=== PATIENT | male | born 1965 | race Caucasian/White ===

== ENCOUNTER → 2018-07-01 | Outpatient (CLI) | payer OTHER ==
[~2018-07-01] MED LIST: AMOXICILLIN500 MG PO; ATIVAN0.5 MG PO; CELEXA40 MG PO; CEPHALEXIN500 M1 PO; EC NAPROSYN500 MG PO; FLEXERIL10 MG PO; MEDROL DOSEPAK4 MG PO; MOTRIN800 MG PO; NEURONTIN300 MG PO; NO DAILY MEDS; PREDNICOT20 MG PO; VICO10300 PO; WELLBUTRIN XL150 MG PO; ZITHROMAX Z PA250 MG PO
== END | disposition home or self-care (01) ==
LOC: RAD 11:11
DX: J43.9 Emphysema, unspecified (principal)

== ENCOUNTER 2019-01-13 14:31 | Inpatient (IN) | payer SELFPAY ==
[2019-01-13] VITALS (7 sets, daily range): BP systolic 121–171; BP diastolic 80–103
[~2019-01-13] VITALS: Ht 175.3 cm; Wt 83.1 kg
--- NOTE | ~2019-01-13 | EKG ---
[place], [place] ELECTROCARDIOGRAM REPORT NAME: GAEL GAUTHIER UNIT #: [id number] ROOM: [facility] DOCTOR: HIMANSHU DRAFT REPORT BIRTHDATE: [birth year] [facility] Test Date: 2019-01-13 Test Time: 17:31:36 Pat Name: GAEL GAUTHIER Department: Room: [facility] Gender: M Brass Chaser: : 1965 Requested By: LETA GARCIA Order Number: [id number] Reading MD: Roberto Bob MD Measurements Intervals [place] Rate: 56 P: 79 MT: 131 QRS: 82 QRSD: 108 T: 72 QT: 431 QTc: 416 Interpretive Statements Sinus rhythm RSR' in V1 or V2, right VCD or RVH Nonspecific T abnormalities, lateral leads Electronically Signed On 01-14-2019 7:53:21 PDT by Roberto Bob MD CM:EKGRPT:ELECTROCARDIOGRAM REPORT [id number] LEAT DOWNS DRAFT REPORT LETA GARCIA M.D.
--- NOTE | ~2019-01-13 | CON ---
[place], [place] REPORT OF CONSULTATION [id number] UNIT #: [id number] ROOM: [facility] DOCTOR: DG DENIS MD BIRTHDATE: [birth year] DOS: 01/14/2019 REASON FOR CONSULTATION: Chest pain, elevated cardiac enzymes. HISTORY OF PRESENT ILLNESS: The patient is a 53-year-old gentleman with no prior cardiovascular history presented to the Emergency Room with left-sided chest pain which radiated towards his jaw. He described the pain as pressure-like sensation. His pain started yesterday morning. This is a resting chest pain; then subsequently pain radiated to the left arm. There is nothing that can make his pain worse or better. He denies any associated nausea, vomiting, or diaphoresis. No fever or chills. No nausea or vomiting. Presented to the Emergency Room and was admitted to the hospital and Cardiology was called for further recommendations. In the Emergency Room, his initial troponins are negative. EKG showed nondiagnostic inferior ST elevation with lateral ST-T changes. The patient was chest pain free in the Emergency Room and his initial troponin was negative; hence, he was admitted to the hospital. He received aspirin and Lovenox in the Emergency Room. He denies any further chest pain. He denies any fever and chills. No nausea, vomiting, or diarrhea. No bladder or bowel symptoms. No PND, no orthopnea. The patient does smoke, last time he smoked was yesterday. Other than this, the patient denies any prior history of chest pain. No neurologic symptoms. No bladder or bowel symptoms. No musculoskeletal symptoms. REVIEW OF SYSTEMS: Review of 10 systems are negative except as mentioned above. PAST MEDICAL HISTORY: 1. Nonsignificant except for some emphysema and COPD. 2. Anxiety and depression. 3. Chronic back pain. ALLERGIES: No known drug allergies. PAST SURGICAL HISTORY: No significant surgical history. FAMILY HISTORY: Noncontributory. SOCIAL HISTORY: The patient does smoke about one and half pack a day, does not use illicit drugs, does not drink alcohol. HOME MEDICATIONS: The patient does not take any medications on a regular basis. PHYSICAL EXAMINATION: VITAL SIGNS: Blood pressure 132/70, pulse 87, respirations 14, weight 83.2 kilos. GENERAL: Alert, comfortable, in no acute distress. HEENT: Pupils are round and equal. No jaundice. NECK: Supple, no distended neck veins, no carotid bruit. CHEST: Symmetrical, nontender. LUNGS: Clear to auscultation. [place], [place] REPORT OF CONSULTATION NAME: GAEL GAUTHIER UNIT #: [id number] ROOM: [facility] DOCTOR: CIRA GIL,DG BIRTHDATE: [birth year] HEART: Regular rate and rhythm, no S3, no palpable thrills. ABDOMEN: Benign, nontender. Bowel sounds normal. EXTREMITIES: Showed no edema. Distal pulses palpable. SKIN: Warm and dry. No cyanosis, no clubbing. RECTAL: Deferred. GENITOURINARY: Deferred. NEUROLOGIC: The patient is alert with no focal neurologic deficit. REVIEW OF THE DIAGNOSTIC TESTS: Initial EKG in the Emergency Room showed some nondiagnostic inferior ST elevation and some lateral ST-T changes. A repeat EKG showed normal sinus rhythm with no ischemic changes. His pertinent labs include white cell count today 19.3 thousand, hemoglobin 15.2, and platelet 270,000. Chemistry unremarkable. Creatinine 0.8. The troponins initially 0.02, subsequently 1.19, 6.87, 12.7. IMPRESSION: 1. Non-ST elevation myocardial infarction. 2. Tobacco smoking. 3. Morbid obesity. 4. 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 RECOMMENDATIONS: 1. The patient currently denies significant pain. Blood pressure and heart rate are stable. Continue aspirin, beta jose eduardo, statin, and Lovenox. He was scheduled to have a cardiac catheterization today at [facility]. Risk and benefits of cardiac catheterization as well as a possible angioplasty and stent was discussed with the patient and his family members and all questions were answered. 2. The patient agreed to proceed to cardiac catheterization, possible angioplasty stent or bypass surgery if needed today at [place], [place]. 3. The patient to follow up with [facility] at the [facility] after his discharge. 4. The patient counseled to quit smoking. DG DENIS MD CM:CONSTR:REPORT OF CONSULTATION [id number] 01/14/19 1037 interface
--- NOTE | ~2019-01-13 | EKG ---
[place], [place] ELECTROCARDIOGRAM REPORT NAME: GAEL GAUTHIER UNIT #: [id number] ROOM: [facility] DOCTOR: HIMANSHU DRAFT REPORT BIRTHDATE: [birth year] [facility] Test Date: 2019-01-13 Test Time: 20:18:10 Pat Name: GAEL GAUTHIER Department: Room: [facility] Gender: M Cocktail Waitress: Roxana Wyatt : 1965 Requested By: LETA GARCIA Order Number: [id number] Reading MD: Roberto Bob MD Measurements Intervals [place] Rate: 98 P: 76 AR: 145 QRS: 79 QRSD: 103 T: 37 QT: 369 QTc: 472 Interpretive Statements Sinus rhythm RSR' in V1 or V2, right VCD or RVH Electronically Signed On 01-14-2019 7:53:33 PDT by Roberto Bob MD CM:EKGRPT:ELECTROCARDIOGRAM REPORT [id number] LETA DOWNS DRAFT REPORT LETA GARCIA M.D.
--- NOTE | ~2019-01-13 | EKG ---
[place], [place] ELECTROCARDIOGRAM REPORT NAME: GAEL GAUTHIER UNIT #: [id number] ROOM: [facility] DOCTOR: HIMANSHU DRAFT REPORT BIRTHDATE: [birth year] [facility] Test Date: 2019-01-14 Test Time: 01:07:55 Pat Name: GAEL GAUTHIER Department: Room: [facility] Gender: M It Generalist: Roxana Wyatt : 1965 Requested By: JENIFER LUEVANO Order Number: [id number] Reading MD: Emerson Dougherty Measurements Intervals [place] Rate: 88 P: 79 [place]: 136 QRS: 79 QRSD: 101 T: 48 QT: 379 QTc: 459 Interpretive Statements Sinus rhythm RSR' in V1 or V2, right VCD or RVH Electronically Signed On 01-15-2019 4:33:01 PDT by Emerson Dougherty CM:EKGRPT:ELECTROCARDIOGRAM REPORT [id number] JENIFER CANNON DRAFT REPORT JENIFER LUEVANO DO
--- NOTE | ~2019-01-13 | EKG ---
[place], [place] ELECTROCARDIOGRAM REPORT NAME: GAEL GAUTHIER UNIT #: [id number] ROOM: [facility] DOCTOR: HIMANSHU DRAFT REPORT BIRTHDATE: [birth year] [facility] Test Date: 2019-01-13 Test Time: 14:35:24 Pat Name: GAEL GAUTHIER Department: Room: [facility] Gender: M Emergency Response Coordinator: : 1965 Requested By: LETA GARCIA Order Number: [id number] Reading MD: Roberto Bob MD Measurements Intervals [place] Rate: 80 P: 74 [place]: 123 QRS: 88 QRSD: 100 T: 97 QT: 373 QTc: 431 Interpretive Statements Sinus rhythm Probable inferior infarct, recent Abnrm T, consider ischemia, anterolateral lds ST depression V1-V3, suggest recording posterior leads Electronically Signed On 01-14-2019 7:53:10 PDT by Roberto Bob MD CM:EKGRPT:ELECTROCARDIOGRAM REPORT [id number] LETA DOWNS DRAFT REPORT LETA GARCIA M.D.
[2019-01-13 14:50] LABS: BASO # 0.1 10*3/uL (0.0-0.1); BASO % 0.5 % (0.0-1.0); EOS # 0.2 10*3/uL (0.0-0.4); EOS % 1.3 % (1.0-4.0); HEMATOCRIT 48.8 % (42.0-52.0); HEMOGLOBIN 16.4 g/dl (14.0-18.0); LYMPH # 4.7 10*3/uL (1.3-4.4); LYMPH % 35.2 % (27.0-41.0); MEAN CELL VOLUME 86.5 fl (80.0-94.0); MEAN CORPUSCULAR HGB 29.1 pg (27.0-31.0); MEAN CORPUSCULAR HGB CONC 33.6 g/dl (33.0-37.0); MEAN PLATELET VOLUME 9.6 fl (9.6-12.3); MONO # 0.9 10*3/uL (0.1-1.0); MONO % 7.1 % (3.0-9.0); NEUT # 7.3 10*3/uL (2.3-7.9); NEUT % 55.3 % (47.0-73.0); PLATELET COUNT AUTOMATED 266 10*3/uL (130-400); RED BLOOD COUNT 5.64 10*6/uL (4.50-5.90); RED CELL DISTRI WIDTH 12.9 % (0-14.5); WHITE BLOOD COUNT 13.2 10*3/uL (4.8-10.8)
[2019-01-13 15:01] LABS: ACT PARTIAL THROMBO TIME 24.5 SECONDS (20.0-32.1); INTERNATIONAL NORM RATIO 0.9 (2.0-3.5)
[2019-01-13 15:06] LABS: ALBUMIN 4.2 gm/dl (3.1-4.5); ALKALINE PHOSPHATASE 87 U/L (45-117); BUN 17 mg/dl (7-24); CHLORIDE 102 mmol/L (98-107); POTASSIUM 3.5 mmol/L (3.5-5.1); SGOT/AST 16 IU/L (3-35); SGPT/ALT 30 U/L (12-78); SODIUM 137 mmol/L (136-145); TOTAL PROTEIN 7.7 gm/dL (6.4-8.2); TROPONIN I 0.022 ng/ml (<0.045)
--- NOTE | 2019-01-13 15:15 | NUR ---
PT GIVEN NTG PER PROTOCOL. PRIOR TO 3RD NTG PT RATED PAIN "2" ON SCALE. BP BETTER 121/82--DENNIS ARANDA RN
--- NOTE | 2019-01-13 18:03 | NUR ---
AT 1530 PT'S BP DROPPED TO 81/47 AND PT FELT LIGHTHEADED.IV FLUID BOLUS IMMEDIATELY STARTED AND PLACE IN [place] AND WITHIN 15 MIN,PT BP WAS UP TO 123/80 AND HE WAS FEELING BETTER.PARI MCKNIGHT AWARE.PT THEN ADMITTED.---DENNIS ARANDA RN
--- NOTE | 2019-01-13 18:45 | NUR ---
DR ROTHMAN NOTIFIED OF INCREASED TROPONIN LEVEL. NEW ORDER TO HOLD STRESS TEST UNTIL PATIENT IS SEEN BY CARDIOLOGY. DR ALBERTO NOTIFIED.
--- NOTE | 2019-01-13 20:12 | NUR ---
PATIENT RESTING IN BED WITH VISITOR AT BEDSIDE. DENIES CHEST PAIN AT THIS TIME. NO NEEDS MADE. BED IN LOWEST POSITION, CALL LIGHT IN REACH
--- NOTE | 2019-01-13 21:00 | NUR ---
DR LUEVANO AWARE OF 8 BEAT RUN OF VTA. STATES TO CALL DR ROTHMAN
--- NOTE | 2019-01-13 21:04 | NUR ---
DR ADORNO ANSWERING SERVICE AWARE OF NEEDING A CALL BACK.
--- NOTE | 2019-01-13 21:17 | NUR ---
ORDERS TAKEN FROM DR ROTHMAN AT THIS TIME
[2019-01-14] VITALS: BP 126/83
--- NOTE | 2019-01-14 01:02 | NUR ---
DR LUEVANO AWARE OF TROPONIN. STATES TO ORDER A STAT EKG BEFORE CALLING DR ROTHMAN. PATIENT RESTING IN BED. STATES HE IS HAVING CHEST PRESSURE RATED 3/10 ON A 0/10 PAIN SCALE, BUT STATES IT IS NOT BAD IT WAS.
--- NOTE | 2019-01-14 01:14 | NUR ---
DR LUEVANO AWARE OF TROPONINS ORDERS Q6 INSTEAD OF Q3.
--- NOTE | 2019-01-14 01:24 | NUR ---
DR LUEVANO ON THE FLOOR AND SPEAKING WITH DR ROTHMAN. PATIENT TO BE TRANSFERRED FOR HEART CATH IN THE MORNING. DR ROTHMAN TO SET UP TRANSFER
--- NOTE | 2019-01-14 02:01 | NUR ---
PATIENT HAD ANOTHER RUN OF VTACH. DR LUEVANO STATES TO TRANSFER HIM TO THE ICU. DR ALBERTO MADE AWARE
[2019-01-14 02:10] VITALS: BP 133/92
--- NOTE | 2019-01-14 02:10 | NUR ---
PATIENT TRANSFERRED TO [facility] WITH [facility] INTACT. REPORT GIVEN TO VENKAT WOODS. ALL QUESTIONS ANSWERED.
--- NOTE | 2019-01-14 02:23 | NUR ---
PT. RECEIVED FROM AT 0210. DENIES CHEST PAIN AT PRESENT. 02 2L NC APPLIED. VS 97.6-93-18M 133/92, PULSE OX 94% ON 2L NC. KIARA BARFIELD RN
[2019-01-14 06:40] LABS: BASO % 0.1 % (0.0-1.0); HEMATOCRIT 45.7 % (42.0-52.0); HEMOGLOBIN 15.2 g/dl (14.0-18.0); LYMPH # 2.1 10*3/uL (1.3-4.4); LYMPH % 10.9 % (27.0-41.0); MEAN CELL VOLUME 85.6 fl (80.0-94.0); MEAN CORPUSCULAR HGB 28.5 pg (27.0-31.0); MEAN CORPUSCULAR HGB CONC 33.3 g/dl (33.0-37.0); MEAN PLATELET VOLUME 9.9 fl (9.6-12.3); MONO # 0.6 10*3/uL (0.1-1.0); MONO % 3.2 % (3.0-9.0); NEUT # 16.5 10*3/uL (2.3-7.9); NEUT % 85.2 % (47.0-73.0); PLATELET COUNT AUTOMATED 272 10*3/uL (130-400); RED BLOOD COUNT 5.34 10*6/uL (4.50-5.90); RED CELL DISTRI WIDTH 12.9 % (0-14.5); WHITE BLOOD COUNT 19.3 10*3/uL (4.8-10.8)
--- NOTE | 2019-01-14 06:55 | NUR ---
DR LUEVANO NOTIFIED OF TROPONIN 12.7. PT DENIES ANY CHEST PAIN OR DISCOMFORT AT THIS TIME.
[2019-01-14 07:04] LABS: ALBUMIN 3.6 gm/dl (3.1-4.5); ALKALINE PHOSPHATASE 72 U/L (45-117); BUN 13 mg/dl (7-24); CHLORIDE 106 mmol/L (98-107); CHOLESTEROL 200 mg/dL (<200); HDL CHOLESTEROL 45 mg/dl (40-60); LDL CHOLESTEROL 139 mg/dL (9-159); POTASSIUM 4.3 mmol/L (3.5-5.1); SGOT/AST 98 IU/L (3-35); SGPT/ALT 38 U/L (12-78); SODIUM 138 mmol/L (136-145); TRIGLYCERIDES 81 mg/dl (<150); VLDL CHOLESTEROL 16 mg/dL (6-40)
[2019-01-14 08:00] VITALS: BP 132/76
--- NOTE | 2019-01-14 09:00 | NUR ---
Meat And Seafood Clerk in to talk to patient. Patient states lives at home with his and children. There are 2 steps in the home. Physician: Dr. Roberto Bob [facility] Home health services: none Patient's level of ADLs: INDEPENDENT Patient has working utilities: yes DME: none Follow-up physician's appointment after d/c: he prefers to make his own follow up appt after discharge Does patient want to access PORTAL?: no Discharge plan discussed with patient. His and children are at the bedside. He lives at home with his and children. he is independent in his ADLs and ambulation. Discussed home health care services and he denies any home needs at this time. He requested assistance with his home medications if he needed any. Discussed using our hospital pharmacy and he verbalized an understanding. He stated he was waiting to see if he was going to be transferred to [facility] for a heart cath. JOSE DOE
--- NOTE | 2019-01-14 09:13 | NUR ---
BRODY FROM [facility] IT APPLICATIONS ANALYST CALLED AND STATED THEY WOULD LIKE PT TO ARRIVE THERE BY 11AM TODAY FOR HIS CATH. PT AND FAMILY AWARE.
--- NOTE | 2019-01-14 09:33 | NUR ---
REPORT GIVEN TO LAWANDA IN SIGN WRITER HAND AT [facility].
--- NOTE | 2019-01-14 10:20 | NUR ---
[facility] HERE TO TRANSPORT PT TO REPLACED BY [facility].
[2019-01-14] MEDS ORDERED: ASPIR LOW81 MG PO (10:34)
[2019-01-14] MEDS ORDERED: ATORVASTATIN CA80 M1 PO (10:38)
[2019-01-14] MEDS ORDERED: TOPROL XL25 MG PO (10:38)
== END 2019-01-14 10:20 | disposition short-term general hospital (02) | DRG 282 ==
LOC: ED 14:31 → ICCU 15:19 → EDHOLD 15:19 → 5E 15:36 → ICCU 01-14 02:18
PROVIDERS: Emergency Medicine; ADMIT Internal Medicine
DX: I21.4 Non-ST elevation (NSTEMI) myocardial infarction (principal); G89.29 Other chronic pain; M54.5 Low back pain; F32.9 Major depressive disorder, single episode, unspecified; F41.9 Anxiety disorder, unspecified; N52.9 Male erectile dysfunction, unspecified; E66.01 Morbid (severe) obesity due to excess calories; F17.210 Nicotine dependence, cigarettes, uncomplicated; J43.9 Emphysema, unspecified; Z71.6 Tobacco abuse counseling; Z68.27 Body mass index [BMI] 27.0-27.9, adult

== ENCOUNTER → 2019-05-26 | Outpatient (CLI) | payer SELFPAY ==
[~2019-05-26] MED LIST changes: +ASPIR LOW81 MG PO; +ATORVASTATIN CA80 M1 PO; +TOPROL XL25 MG PO
== END | disposition home or self-care (01) ==
LOC: RESCLI 00:30
DX: Z23 Encounter for immunization (principal); I25.10 Atherosclerotic heart disease of native coronary artery without angina pectoris; E78.5 Hyperlipidemia, unspecified; J44.9 Chronic obstructive pulmonary disease, unspecified; F41.9 Anxiety disorder, unspecified; F32.9 Major depressive disorder, single episode, unspecified; M19.90 Unspecified osteoarthritis, unspecified site; I25.2 Old myocardial infarction; E66.01 Morbid (severe) obesity due to excess calories; F17.210 Nicotine dependence, cigarettes, uncomplicated

== ENCOUNTER → 2019-08-03 | Outpatient (CLI) | payer SELFPAY ==
[2019-08-03 11:08] LABS: BASO # 0.1 10*3/uL (0.0-0.1); BASO % 0.6 % (0.0-1.0); EOS # 0.3 10*3/uL (0.0-0.4); EOS % 2.8 % (1.0-4.0); HEMATOCRIT 46.9 % (42.0-52.0); HEMOGLOBIN 15.2 g/dl (14.0-18.0); LYMPH # 3.5 10*3/uL (1.3-4.4); LYMPH % 38.5 % (27.0-41.0); MEAN CELL VOLUME 86.4 fl (80.0-94.0); MEAN CORPUSCULAR HGB CONC 32.4 g/dl (33.0-37.0); MEAN PLATELET VOLUME 9.4 fl (9.6-12.3); MONO # 0.7 10*3/uL (0.1-1.0); MONO % 7.8 % (3.0-9.0); NEUT # 4.5 10*3/uL (2.3-7.9); NEUT % 49.7 % (47.0-73.0); PLATELET COUNT AUTOMATED 278 10*3/uL (130-400); RED BLOOD COUNT 5.43 10*6/uL (4.50-5.90); RED CELL DISTRI WIDTH 13.2 % (0-14.5); WHITE BLOOD COUNT 9.1 10*3/uL (4.8-10.8)
[2019-08-03 12:00] LABS: ALBUMIN 4.2 gm/dl (3.1-4.5); BUN 21 mg/dl (7-24); CHLORIDE 104 mmol/L (98-107); CREATININE 1.02 mg/dL (0.70-1.30); POTASSIUM 4.2 mmol/L (3.5-5.1); SGOT/AST 17 IU/L (3-35); SGPT/ALT 39 U/L (12-78); SODIUM 139 mmol/L (136-145)
[2019-08-03 12:02] LABS: ALKALINE PHOSPHATASE 80 U/L (45-117)
== END | disposition home or self-care (01) ==
LOC: LAB 10:41
PROVIDERS: Internal Medicine
DX: I25.10 Atherosclerotic heart disease of native coronary artery without angina pectoris (principal)

== ENCOUNTER → 2019-08-04 | Outpatient (CLI) | payer SELFPAY | END | disposition home or self-care (01) | LOC: RESCLI 02:26 | DX: I25.10 Atherosclerotic heart disease of native coronary artery without angina pectoris (principal); J44.9 Chronic obstructive pulmonary disease, unspecified; E78.5 Hyperlipidemia, unspecified; F17.200 Nicotine dependence, unspecified, uncomplicated; Z79.899 Other long term (current) drug therapy ==

== ENCOUNTER → 2019-08-14 | Outpatient (CLI) | payer SELFPAY | END | disposition home or self-care (01) | LOC: RESCLI 00:42 | DX: J32.1 Chronic frontal sinusitis (principal); E78.5 Hyperlipidemia, unspecified; J44.9 Chronic obstructive pulmonary disease, unspecified; I25.10 Atherosclerotic heart disease of native coronary artery without angina pectoris; R05 Cough; Z79.899 Other long term (current) drug therapy ==

== ENCOUNTER → 2020-07-06 | Outpatient (CLI) | payer SELFPAY | END | disposition home or self-care (01) | LOC: RESCLI 00:34 | PROVIDERS: ATTEND Internal Medicine Nephrology | DX: I25.10 Atherosclerotic heart disease of native coronary artery without angina pectoris (principal); J44.9 Chronic obstructive pulmonary disease, unspecified; E78.5 Hyperlipidemia, unspecified; E05.90 Thyrotoxicosis, unspecified without thyrotoxic crisis or storm; F17.210 Nicotine dependence, cigarettes, uncomplicated; Z79.899 Other long term (current) drug therapy; Z95.828 Presence of other vascular implants and grafts; Z23 Encounter for immunization ==